=== PATIENT | male | born 1960 | race Caucasian/White ===

== ENCOUNTER 2018-06-21 21:20 | Emergency (ER) | payer SELFPAY ==
--- NOTE | 2018-06-21 21:56 | ERPHSYRPT ---
- History of Present Illness Time Seen by Provider: 06/21/18 21:40 Source: patient, family Exam Limitations: no limitations Physician History: 58 y/o white male smoker on no medications and has nkda, presents with 3 days worsening left upper ext and left lower ext weakness. pt has not had any diagnosis of htn or any other medical condition. pt denies visual changes, denies headache, denies soa, denies cp. he has never had this type of sx in past. Severity: severe Associated Symptoms: weakness, No nausea, No vomiting, No abdominal pain, No shortness of breath, No chest pain, No headaches, No syncope, No seizure - Review of Systems Constitutional: Weakness (left side) Eyes: No Symptoms Ears, Nose, & Throat: No Symptoms Respiratory: No Symptoms Cardiac: No Symptoms Abdominal/Gastrointestinal: No Symptoms Genitourinary Symptoms: No Symptoms Musculoskeletal: No Symptoms Skin: No Symptoms Neurological: Focal Weakness (left upper and lower ext), No Dizziness, No Gait Changes, No Headache, No Speech Changes Psychological: No Symptoms Endocrine: No Symptoms Hematologic/Lymphatic: No Symptoms Immunological/Allergic: No Symptoms All Other Systems: Reviewed and Negative - Past Medical History Pertinent Past Medical History: No Neurological History: No Pertinent History ENT History: No Pertinent History Cardiac History: No Pertinent History Respiratory History: No Pertinent History Endocrine Medical History: No Pertinent History Musculoskeletal History: No Pertinent History GI Medical History: No Pertinent History History: No Pertinent History Psycho-Social History: No Pertinent History Male Reproductive Disorders: No Pertinent History - Past Surgical History Neuro Surgical History: No Pertinent History Cardiac: No Pertinent History Respiratory: No Pertinent History Gastrointestinal: No Pertinent History Genitourinary: No Pertinent History Musculoskeletal: No Pertinent History Male Surgical History: No Pertinent History - Nursing Vital Signs Nursing Vital Signs: Initial Vital Signs Temperature 99.0 F 06/21/18 21:47 Pulse Rate 57 L 06/21/18 21:47 Respiratory Rate 18 06/21/18 21:47 Blood Pressure 164/104 06/21/18 21:47 O2 Sat by Pulse Oximetry 98 06/21/18 21:47 Pain Scale Pain Intensity 2 - Physical Exam General Appearance: no apparent distress, alert, anxiety, obese Eye Exam: PERRL/EOMI, eyes nml inspection Ears, Nose, Throat Exam: normal ENT inspection, moist mucous membranes Neck Exam: normal inspection, non-tender, supple, full range of motion Respiratory Exam: normal breath sounds, lungs clear, airway intact, No chest tenderness, No respiratory distress Cardiovascular Exam: regular rate/rhythm, normal heart sounds, normal peripheral pulses Gastrointestinal/Abdomen Exam: soft, normal bowel sounds, No tenderness, No guarding Rectal Exam: not done Back Exam: normal inspection, normal range of motion, No CVA tenderness, No vertebral tenderness Extremity Exam: normal inspection, No pedal edema, No tenderness Neurologic Exam: alert, oriented x 3, cooperative, normal mood/affect, sensory deficit (left upper and lower ext), motor weakness (left upper and lower ext), abnormal gait, No disoriented, No confusion, No facial droop, No slurred speech , No aphasia, No dysarthria Skin Exam: normal color, warm, dry Lymphatic Exam: No adenopathy SpO2 Interpretation: normal - Course Nursing assessment & vital signs reviewed: Yes EKG Interpreted by Me: RATE (53), Sinus Rhythm, NORMAL AXIS, NORMAL INTERVALS, NORMAL QRS, Other (no comparison ekg.) Ordered Tests: Active Orders 24 hr Category Date Time Status Librarian Specialist STAT Care 06/21/18 21:59 Active EKG-ER Only STAT Care 06/21/18 21:59 Active IV Insertion STAT Care 06/21/18 21:59 Active NPO (ED) STAT Care 06/21/18 21:43 Active Pulse Oximetry (ED) STAT Care 06/21/18 21:59 Active HEAD WITHOUT CONTRAST [CT] Stat Exams 06/21/18 21:43 Taken CBC W DIFF Stat Lab 06/21/18 22:57 Completed CMP Stat Lab 06/21/18 22:57 Completed D-DIMER QUANTITATION Stat Lab 06/21/18 22:57 Completed Lab/Rad Data: Laboratory Result Diagrams 06/21/18 22:57 06/21/18 22:57 Laboratory Results 06/21/18 06/21/18 06/21/18 Range/Units 22:57 22:57 22:57 WBC 8.7 (4.0-10.5) K/mm3 RBC 5.64 H (4.1-5.6) M/mm3 Hgb 16.4 (12.5-18.0) gm/dl Hct 50.8 H (42-50) % MCV 90.1 (78-100) fl MCH 29.0 (26-32) pg MCHC 32.3 (32-36) g/dl RDW 13.5 (11.5-14.0) % Plt Count 248 (150-450) K/mm3 MPV 11.2 H (6-9.5) fl Gran % 62.4 (36.0-66.0) % Eos # (Auto) 0.52 H (0-0.5) Absolute Lymphs (auto) 2.04 (1.0-4.6) Absolute Monos (auto) 0.67 (0.0-1.3) Lymphocytes % 23.4 L (24.0-44.0) % Monocytes % 7.7 (0.0-12.0) % Eosinophils % 6.0 H (0.00-5.0) % Basophils % 0.5 (0.0-0.4) % Absolute Granulocytes 5.45 (1.4-6.9) Basophils # 0.04 (0-0.4) D-Dimer 446 (215-500) ng/mL Sodium 143 (137-145) mmol/L Potassium 4.0 (3.5-5.1) mmol/L Chloride 106 (98-107) mmol/L Carbon Dioxide 26 (22-30) mmol/L Anion Gap 14.6 (5-15) MEQ/L BUN 16 (9-20) mg/dL Creatinine 0.71 (0.66-1.25) mg/dL Estimated GFR > 60.0 ML/MIN Glucose 86 (74-106) mg/dL Calcium 9.4 (8.4-10.2) mg/dL Total Bilirubin 0.40 (0.2-1.3) mg/dL AST 22 (17-59) U/L ALT 20 (0-50) U/L Alkaline Phosphatase 89 (38-126) U/L Serum Total Protein 7.4 (6.3-8.2) g/dL Albumin 4.1 (3.5-5.0) g/dL - Progress Progress: improved, re-examined Progress Note: 06/22/18 00:37 ct head-no acute intracranial abnormality pt now moving his left upper and left lower ext to a greater extent but not normally. he still cannot walk. he refuses admission and transfer. he states he does not have health insurance and does not want mounting bills. i advised him of risks of leaving [facility] and benefits of admission and transfer. pt understands and desires to leave [facility]. Counseled pt/family regarding: lab results, diagnosis, need for follow-up, rad results - Departure Departure Disposition: AMA Clinical Impression: Left-sided weakness Condition: Stable Critical Care Time: No Referrals: DOCTOR,NO FAMILY [Primary Care Provider] - Additional Instructions: return to ED immediately if symptoms worsen. follow up with neurologist for further management.
[2018-06-21 22:58] LABS: BASOPHIL % 0.5 % (0.0-0.4); Basophil (Absolute #) 0.04 (0-0.4); Eosinophil (Absolute #) 0.52 (0-0.5); Granulocyte Absolute (ANC) 5.45 (1.4-6.9); Granulocytes % 62.4 % (36.0-66.0); Hematocrit 50.8 % (42-50); Hemoglobin 16.4 gm/dl (12.5-18.0); Lymphocyte (Absolute #) 2.04 (1.0-4.6); Lymphocytes % 23.4 % (24.0-44.0); Mean Cell Volume 90.1 fl (78-100); Mean Corpuscular Hgb Concent. 32.3 g/dl (32-36); Mean Platelet Volume 11.2 fl (6-9.5); Monocyte (Absolute #) 0.67 (0.0-1.3); Monocytes % 7.7 % (0.0-12.0); Platelet Count 248 K/mm3 (150-450); Red Blood Count 5.64 M/mm3 (4.1-5.6); Red Cell Distribution Width 13.5 % (11.5-14.0); White Blood Count 8.7 K/mm3 (4.0-10.5)
[2018-06-21 23:13] LABS: ALBUMIN 4.1 g/dL (3.5-5.0); ALKALINE PHOSPHATASE 89 U/L (38-126); ANION GAP 14.6 MEQ/L (5-15); BLOOD UREA NITROGEN 16 mg/dL (9-20); CHLORIDE 106 mmol/L (98-107); Calcium 9.4 mg/dL (8.4-10.2); Carbon Dioxide 26 mmol/L (22-30); Creatinine 1 0.71 mg/dL (0.66-1.25); Glucose 86 mg/dL (74-106); SGOT/AST 22 U/L (17-59); SGPT/ALT 20 U/L (0-50); SODIUM 143 mmol/L (137-145); Total Protein 7.4 g/dL (6.3-8.2)
[2018-06-22 00:56] VITALS: BP 138/94; PULSE 56; O2SAT 98
--- NOTE | 2018-06-22 07:52 | XRAY ---
Indication: Left-sided weakness/numbness. Multiple contiguous axial images obtained through the head without contrast. Comparison: None Normal appearing brain parenchyma, ventricles, and bony calvarium. Visualized paranasal sinuses and mastoid air cells are clear. Impression: Normal CT head without contrast exam. Comment: Preliminary interpretation was made by [facility]. No discrepancy. CTDI 71.01
== END 2018-06-22 01:20 | disposition left against medical advice (07) ==
LOC: ED 21:20
DX: R53.1 Weakness (principal)
CPT/HCPCS: 36000; 36415; 70450; 80053; 85025; 85379; 93005; 93041; 99284

== ENCOUNTER 2024-12-15 14:44 | Observation (INO) | payer MEDICARE ==
[2024-12-15 15:18] LABS: BASOPHIL % 1.3 % (0.2-1.2); Basophil (Absolute #) 0.09 x10^3/uL (0.01-0.08); Eosinophil (Absolute #) 0.42 x10^3/uL (0.04-0.54); Hematocrit 50.7 % (40.1-51.0); Hemoglobin 15.9 g/dL (13.7-17.5); IMMATURE GRAN # 0.02 x10^3u/L (0.001-0.031); IMMATURE GRAN % 0.3 % (0.001-0.429); Lymphocyte (Absolute #) 1.92 x10^3/uL (1.32-3.57); Mean Corpuscular Hemoglobin 28.9 pg (25.7-32.2); Mean Corpuscular Hgb Concent. 31.4 g/dL (32.3-36.5); Monocyte (Absolute #) 0.59 x10^3/uL (0.30-0.82); NUCLEATED RBC # 0.00 x10^3u/L (0.00-0.012); NUCLEATED RBC % 0.0 % (0.00-0.2); Platelet Count 244 x10^3/uL (163-337); Red Blood Count 5.51 x10^6/uL (4.63-6.08); White Blood Count 7.0 x10^3/uL (4.23-9.07)
--- NOTE | 2024-12-15 15:27 | XRAY ---
Indication: Weakness. Multiple contiguous axial images obtained through the head without contrast. Comparison: August 21, 2018 Interval global atrophy and moderate periventricular degenerative microischemia within normal limits. New remote lacunar infarcts right basal ganglia/internal capsule. No acute intracranial hemorrhage, abnormal extra-axial fluid collection, or mass effect. 4th ventricle is midline without hydrocephalus. Bony calvarium intact. Mild mucosal thickening both ethmoid and lesser degree left frontal sinuses . Mastoid air cells are clear. Impression: Nonacute senile brain. Remote lacunar infarcts right basal ganglia/internal capsule. Incidental paranasal sinus disease.
[2024-12-15 15:43] LABS: Calcium 8.9 mg/dL (8.4-10.2); Carbon Dioxide 30.0 mmol/L (22-30); Creatinine 1 0.96 mg/dL (0.66-1.25); EST GLOMERULAR FILTRATION RATE 87.7 ML/MIN; Glucose 100.0 mg/dL (74-106); NT PRO BNPII 870.0 pg/mL (<300); Potassium 4.3 mmol/L (3.5-5.1); SGOT/AST 20.0 U/L (17-59); SGPT/ALT 13.0 U/L (0-50); Total Protein 7.1 g/dL (6.3-8.2)
[2024-12-15] MEDS ORDERED: NORVASC 5 MG ONE (16:07)
[2024-12-15] MEDS: NORVASC 5 MG PO ONE (16:13)
[2024-12-15] MEDS: CHLORTHALIDONE PO SCH (16:15)
--- NOTE | 2024-12-15 16:39 | ERPHSYRPT ---
- History of Present Illness Time Seen by Provider: 12/15/24 16:38 Source: patient Exam Limitations: no limitations Patient Subjective Stated Complaint: C/O hypertension Triage Nursing Assessment: patient brought to ED by ambulance from [facility] with c/o hypertension. patient had a systolic of 244 and diastolic of 104 per EMS. patient has a BP of 189/145 after patient received labetol by EMS. patient rates shoulder pain 5/10 at this time. states he has been weak for a long period time and continues to get weaker each day. skin w/n/d, afebrile, patient denies chest pain or shortness of breath at this time. Physician History: 64-year-old male history of type 2 diabetes COPD hypertension stroke 2018 residual right-sided weakness, peripheral neuropathy and aneurysm presents to our ED via EMS as a referral from his primary care doctor's (Dr. Parmar) office for evaluation of strokelike symptoms. Patient states that he has been off of his blood pressure medication for over a year. He did not provide a specific reason as to why. She admits to experiencing generalized weakness. No focal or lateralizing symptomology otherwise. Patient received 5 mg of labetalol by EMS. Blood pressure had reportedly improved from 244 systolic to 189 systolic. Denied pain. No chest pain. Patient afebrile. No shortness of breath. Patient voiced no other complaints or concerns. Portions of this note were created with voice recognition technology. There may be grammatical, spelling, punctuation or sound alike errors Timing/Duration: today Severity: moderate Modifying Factors: Improves With: nothing Associated Symptoms: denies symptoms Allergies/Adverse Reactions: No Known Drug Allergies Allergy (Verified 12/15/24 15:02) Home Medications: Aspirin 81 mg PO DAILY 12/15/24 [History] Hx Tetanus, Diphtheria Vaccination/Date Given: No (unknown) Hx Influenza Vaccination/Date Given: Yes Hx Pneumococcal Vaccination/Date Given: Yes Travel Risk - International Travel Have you traveled outside of the country in past 3 weeks: No - Emerging Infectious Disease Are you exhibiting symptoms associated with any current EIDs: No - Review of Systems All Other Systems: Reviewed and Negative - Past Medical History Pertinent Past Medical History: No Neurological History: Peripheral Neuropathy, Stroke ENT History: No Pertinent History Cardiac History: Aneurysm, Hypertension Respiratory History: Asthma, COPD Endocrine Medical History: Diabetes Type II Musculoskeletal History: Osteoarthritis GI Medical History: No Pertinent History History: No Pertinent History Psycho-Social History: No Pertinent History Male Reproductive Disorders: No Pertinent History Other Medical History: He has loss of sensation in the L LE, he notes numbness in the top of the L foot. DROP FOOT ON THE LEFT He notes MRI of LB and neck region, he states they were negative. - Past Surgical History Past Surgical History: Yes Neuro Surgical History: No Pertinent History Cardiac: No Pertinent History Respiratory: No Pertinent History Gastrointestinal: No Pertinent History Genitourinary: No Pertinent History Musculoskeletal: No Pertinent History Male Surgical History: No Pertinent History Other Surgical History: lumbar fusion, left shoulder repair - Social History Smoking Status: Former smoker How long have you smoked: yrs Exposure to second hand smoke: No Drug Use: none - Social Determinants of Health Will the patient participate in the screening: Declined to provide - Nursing Vital Signs Nursing Vital Signs: Initial Vital Signs Pulse Rate 63 12/15/24 14:47 Respiratory Rate 20 12/15/24 14:47 Blood Pressure 189/145 12/15/24 14:47 O2 Sat by Pulse Oximetry 98 12/15/24 14:47 Pain Scale Pain Intensity 0 - Physical Exam General Appearance: no apparent distress, alert Eye Exam: PERRL/EOMI, eyes nml inspection Ears, Nose, Throat Exam: normal ENT inspection, moist mucous membranes Neck Exam: normal inspection, full range of motion Respiratory Exam: normal breath sounds, lungs clear, No respiratory distress Cardiovascular Exam: regular rate/rhythm, normal heart sounds, normal peripheral pulses Gastrointestinal/Abdomen Exam: soft, normal bowel sounds, No tenderness, No mass Back Exam: normal inspection, normal range of motion, No CVA tenderness, No vertebral tenderness Extremity Exam: normal inspection, normal range of motion, pelvis stable Neurologic Exam: alert, oriented x 3, cooperative, normal mood/affect, sensation nml, other (Residual left-sided hemiparesis. Stroke in 2018. Patient with right-sided symptoms.), No motor deficits Skin Exam: normal color, warm, dry, No rash Lymphatic Exam: No adenopathy SpO2 Interpretation: normal SpO2: 97 O2 Delivery: Room Air - Course Nursing assessment & vital signs reviewed: Yes EKG Interpreted by Me: RATE (61), Sinus Rhythm, NORMAL AXIS, NORMAL INTERVALS, NORMAL QRS - CT Exams Soft Tissue Neck CT Interpretation: Tele-radiologist Report (ET neck no comps punctate calcification left carotid bulb and left ICA. Normal CTA neck otherwise.) Head CT Interpretation: Tele-radiologist Report (No comps. Very minimal calcification both parasellar ICAs otherwise normal CTA head) Ordered Tests: Active Orders 24 hr Category Date Time Status Construction Trades Teacher STAT Care 12/15/24 14:54 Active EKG-ER Only STAT Care 12/15/24 14:52 Active IV Insertion STAT Care 12/15/24 14:52 Active Pulse Oximetry (ED) STAT Care 12/15/24 14:[address] ANGIOGRAPHY NECK [CT] Stat Exams 12/15/24 16:37 Taken CTA HEAD W AND/OR WO CONTRAST [CT] Stat Exams 12/15/24 16:37 Taken HEAD WITHOUT CONTRAST [CT] Stat Exams 12/15/24 14:58 Completed CBC W DIFF Stat Lab 12/15/24 15:15 Completed CMP Stat Lab 12/15/24 15:15 Completed NT PRO BNPII Stat Lab 12/15/24 15:15 Completed TROPONIN Q4H Lab 12/15/24 15:15 Completed TROPONIN Q4H Lab 12/15/24 19:00 Completed TROPONIN Q4H Lab 12/15/24 23:00 Ordered UA W/RFX UR CULTURE Stat Lab 12/15/24 17:47 Completed Medication Summary Generic Name Dose Route Start Last Admin Trade Name Freq PRN Reason Stop Dose Admin Chlorthalidone 25 mg 12/15/24 16:15 12/15/24 17:00 Chlorthalidone 25 Mg Tablet PO 01/14/25 16:14 Not Given DAILY DAMON Discontinued Medications Generic Name Dose Route Start Last Admin Trade Name Freq PRN Reason Stop Dose Admin Amlodipine Besylate 5 mg 12/15/24 16:01 12/15/24 16:13 Amlodipine Besylate 5 Mg Tablet PO 12/15/24 16:02 5 mg STAT ONE Administration Amlodipine Besylate Confirm 12/15/24 16:07 Amlodipine Besylate 5 Mg Tablet Administered 12/15/24 16:08 Dose 5 mg .ROUTE .[facility] ONE Lab/Rad Data: Laboratory Result Diagrams 12/15/24 15:15 12/15/24 15:15 Laboratory Results 12/15/24 12/15/24 12/15/24 Range/Units 19:00 17:47 15:15 WBC (4.23-9.07) x10^3/uL RBC (4.63-6.08) x10^6/uL Hgb (13.7-17.5) g/dL Hct (40.1-51.0) % MCV (79.0-92.2) fL MCH (25.7-32.2) pg MCHC (32.3-36.5) g/dL RDW (11.6-14.4) % Plt Count (163-337) x10^3/uL MPV (9.4-12.4) fL Gran % (34.0-67.9) % Immature Gran % (Auto) (0.001-0.429) % Nucleat RBC Rel Count (0.00-0.2) % Eos # (Auto) (0.04-0.54) x10^3/uL Immature Gran # (Auto) (0.001-0.031) x10^3u/L Absolute Lymphs (auto) (1.32-3.57) x10^3/uL Absolute Monos (auto) (0.30-0.82) x10^3/uL Absolute Nucleated RBC (0.00-0.012) x10^3u/L Lymphocytes % (21.8-53.1) % Monocytes % (5.3-12.2) % Eosinophils % (0.8-7.0) % Basophils % (0.2-1.2) % Absolute Granulocytes (1.78-5.38) x10^3/uL Basophils # (0.01-0.08) x10^3/uL Sodium (135-145) mmol/L Potassium (3.5-5.1) mmol/L Chloride (98-107) mmol/L Carbon Dioxide (22-30) mmol/L Anion Gap (5-15) MEQ/L BUN (9-20) mg/dL Creatinine (0.66-1.25) mg/dL Estimated GFR ML/MIN Glucose (74-106) mg/dL Calcium (8.4-10.2) mg/dL Total Bilirubin (0.2-1.3) mg/dL AST (17-59) U/L ALT (0-50) U/L Alkaline Phosphatase (38-126) U/L Troponin I < 0.012 < 0.012 (0.000-0.033) ng/mL NT-Pro-B Natriuret Pep (<300) pg/mL Serum Total Protein (6.3-8.2) g/dL Albumin (3.5-5.0) g/dL Urine Color Yellow (Yellow) Urine Appearance Clear (Clear) Urine pH 5.0 (4.6-8.0) Ur Specific [place] >=1.030 A (1.005-1.030) Urine Protein Trace A (Negative) Urine Glucose (UA) Negative (Negative) mg/dL Urine Ketones Trace A (Negative) Urine Blood Negative (Negative) Urine Nitrite Negative (Negative) Urine Bilirubin Negative (Negative) Urine Urobilinogen 1.0 A (0.2) mg/dL Ur Leukocyte Esterase Negative (Negative) U Hyaline Cast (Auto) NONE SEEN (0-2) /LPF Urine Microscopic RBC 0-2 (0-5) /HPF Urine Microscopic WBC 0-2 (0-5) /HPF Ur Epithelial Cells None Seen (None Seen) /HPF Urine Bacteria None Seen (None Seen) /HPF Urine Culture Reflexed NO (NO) 12/15/24 12/15/24 Range/Units 15:15 15:15 WBC 7.0 (4.23-9.07) x10^3/uL RBC 5.51 (4.63-6.08) x10^6/uL Hgb 15.9 (13.7-17.5) g/dL Hct 50.7 (40.1-51.0) % MCV 92.0 (79.0-92.2) fL MCH 28.9 (25.7-32.2) pg MCHC 31.4 L (32.3-36.5) g/dL RDW 12.9 (11.6-14.4) % Plt Count 244 (163-337) x10^3/uL MPV 10.6 (9.4-12.4) fL Gran % 56.6 (34.0-67.9) % Immature Gran % (Auto) 0.3 (0.001-0.429) % Nucleat RBC Rel Count 0.0 (0.00-0.2) % Eos # (Auto) 0.42 (0.04-0.54) x10^3/uL Immature Gran # (Auto) 0.02 (0.001-0.031) x10^3u/L Absolute Lymphs (auto) 1.92 (1.32-3.57) x10^3/uL Absolute Monos (auto) 0.59 (0.30-0.82) x10^3/uL Absolute Nucleated RBC 0.00 (0.00-0.012) x10^3u/L Lymphocytes % 27.4 (21.8-53.1) % Monocytes % 8.4 (5.3-12.2) % Eosinophils % 6.0 (0.8-7.0) % Basophils % 1.3 H (0.2-1.2) % Absolute Granulocytes 3.98 (1.78-5.38) x10^3/uL Basophils # 0.09 H (0.01-0.08) x10^3/uL Sodium 142 (135-145) mmol/L Potassium 4.3 (3.5-5.1) mmol/L Chloride 105 (98-107) mmol/L Carbon Dioxide 30 (22-30) mmol/L Anion Gap 11.8 (5-15) MEQ/L BUN 13 (9-20) mg/dL Creatinine 0.96 (0.66-1.25) mg/dL Estimated GFR 87.7 ML/MIN Glucose 100 (74-106) mg/dL Calcium 8.9 (8.4-10.2) mg/dL Total Bilirubin 0.30 (0.2-1.3) mg/dL AST 20 (17-59) U/L ALT 13 (0-50) U/L Alkaline Phosphatase 105 (38-126) U/L Troponin I (0.000-0.033) ng/mL NT-Pro-B Natriuret Pep 870 (<300) pg/mL Serum Total Protein 7.1 (6.3-8.2) g/dL Albumin 4.1 (3.5-5.0) g/dL Urine Color (Yellow) Urine Appearance (Clear) Urine pH (4.6-8.0) Ur Specific [place] (1.005-1.030) Urine Protein (Negative) Urine Glucose (UA) (Negative) mg/dL Urine Ketones (Negative) Urine Blood (Negative) Urine Nitrite (Negative) Urine Bilirubin (Negative) Urine Urobilinogen (0.2) mg/dL Ur Leukocyte Esterase (Negative) U Hyaline Cast (Auto) (0-2) /LPF Urine Microscopic RBC (0-5) /HPF Urine Microscopic WBC (0-5) /HPF Ur Epithelial Cells (None Seen) /HPF Urine Bacteria (None Seen) /HPF Urine Culture Reflexed (NO) - Progress Progress: improved Progress Note: Case discussed with Dr. Saha neurologist at 4:35 PM. She advised CTA head and neck as well as a 300 mg loading dose of Plavix. Patient to be admitted for an MRI cardiac echo. Please see note for additional details. Neurologist Dr. Saha advised slow decrease in blood pressure. Patient was given oral hypertensives as ordered by his primary care doctor prior to arrival. Blood pressure down to 197 systolic. MAP decreased by 20% 12/15/24 16:38 64-year-old male history of type 2 diabetes COPD hypertension stroke 2018 residual right-sided weakness, peripheral neuropathy and aneurysm presents to our ED via EMS as a referral from his primary care doctor's (Dr. Parmar) office for evaluation of strokelike symptoms. Patient states that he has been off of his blood pressure medication for over a year. Physical exam revealed residual left sided hemiparesis. Patient ambulates with a cane. Otherwise no focal or lateralizing symptomology. CTA head and neck showed no significant stenotic lesions. Patient will be admitted for further evaluation including MRI and echo. Plan of care discussed with patient. He agrees to admission to [facility] for further evaluation and treatment. I considered decreasing blood pressure with nicardipine however felt this would have been too rapid in light of his year long history of untreated and uncontrolled hypertension. This was discussed with neurologist. We agreed on oral antihypertensives slow gradual decrease in blood pressure EKG sinus rhythm no heart strain observed History obtained from patient's primary care provider patient and EMS. Differential diagnosis stroke, hypertensive urgency, Portions of this note were created with voice recognition technology. There may be grammatical, spelling, punctuation or sound alike errors Complexity of problems addressed is moderate acute complicated. No critical care time. Complexity of data reviewed and analyzed is extensive. Test ordered test reviewed results analyzed and correlated clinically with history and physical exam. Management discussed with hospitalist who accepts admission to observation. Management also discussed with neurologist as stated above. Risk of complication at risk of morbidity/mortality of patient management is high. Patient requires hospitalization for further evaluation and treatment. Vital stable. Time spent to admit patient is approximately 20 minutes. Plan of care established for shared decision making. No social determinants of health present to impede follow-up. Portions of this note were created with voice recognition technology. There may be grammatical, spelling, punctuation or sound alike errors 12/15/24 19:40 Hospitalist 's admission at 8:10 PM 12/15/24 19:50 Counseled pt/family regarding: lab results, diagnosis, need for follow-up - Departure Departure Disposition: Observation Clinical Impression: Hypertensive emergency Condition: Stable Critical Care Time: No Referrals: HILARIO CHAPA PA [Primary Care Provider, UNKNOWN] - Follow up/PCP as directed
[2024-12-15 19:10] LABS: Glucose, Urine Negative (Negative); Protein,Urine Dip Trace (Negative); RBC 0-2 /HPF (0-5); WBC 0-2 /HPF (0-5)
[2024-12-15] MEDS ORDERED: PLAVIX Tablet ONE (20:20)
[2024-12-15] MEDS: PLAVIX Tablet PO ONE (20:22)
[2024-12-16 05:29] LABS: Hematocrit 49.5 % (40.1-51.0); Hemoglobin 15.8 g/dL (13.7-17.5); Mean Corpuscular Hemoglobin 28.6 pg (25.7-32.2); Mean Corpuscular Hgb Concent. 31.9 g/dL (32.3-36.5); Platelet Count 223 x10^3/uL (163-337); Red Blood Count 5.52 x10^6/uL (4.63-6.08); White Blood Count 8.3 x10^3/uL (4.23-9.07)
[2024-12-16 06:06] LABS: Calcium 8.9 mg/dL (8.4-10.2); Carbon Dioxide 27.0 mmol/L (22-30); Creatinine 1 0.77 mg/dL (0.66-1.25); EST GLOMERULAR FILTRATION RATE 99.4 ML/MIN; Glucose 94.0 mg/dL (74-106); Potassium 3.8 mmol/L (3.5-5.1)
--- NOTE | 2024-12-16 06:23 | PCM.HP ---
History of Present Illness - Chief Complaint Chief Complaint: Hypertensive emergency History of Present Illness: Hypertensive Urgency (acute, high risk) - Patient reports non-adherence to antihypertensive therapy for over one year. Required 4-5 medications for control previously but stopped them approximately one year ago due to running out. - Initiated on amlodipine 5 mg and chlorthalidone 25 mg in the Emergency Department. - Will add lisinopril 20 mg. - Recommended to only uptitrate medications after 1-2 weeks. - Consider an outpatient echocardiogram. Right-Sided Paresthesia/Motor Weakness (high risk, unclear chronicity) - CTA angiogram showed no significant vascular disease. - A brain MRI has been recommended by the neurology domestic travel consultant. - Assistance from neurologist is appreciated, will follow recommendations from the neurology service. Cerebrovascular Disease (chronic) - History of stroke in 2018 with residual right-sided weakness. - Anti-platelet and lipid-lowering therapy. - Target LDL goal is <55 mg/dL given age and risk factors. Diabetes Mellitus (chronic) - No acute management changes at this time. - Continue home metformin. Unclear prior history of aneurysm (chronic, high risk) - Recommend outpatient abdominal aortic aneurysm and CT chest to investigate - Serial monitoring can allow for timely intervention if required, to prevent significant morbidity/mortality Subjective This is a 64-year-old gentleman who presented initially to his primary care physician's office today with a complaint of right-sided paresthesia, described as a "pins and needles" sensation affecting the entire right side of his body, but most prominently in the right upper extremity. At the primary care physician's office, he was found to have a markedly elevated blood pressure of over 200/100 mmHg and was subsequently referred to [facility] for evaluation of hypertensive urgency/emergency. In the Emergency Department, he reported non- adherence to his antihypertensive medications for over a year. He also endorsed experiencing fatigue and weakness for several months. His past medical history is significant for diabetes mellitus, hypertension, cerebrovascular disease with a stroke in 2018 resulting in right-sided weakness, peripheral neuropathy, and COPD. Home cardiac medications Reports not taking any antihypertensive medications for over one year. Physical examination Vital Signs Blood pressure: 180/145 mmHg Heart rate: 63 beats per minute Respiratory rate: 18 breaths per minute Oxygen saturation: 98% on room air Neurological Alert and oriented to person, place, and time. Not in acute distress. Normocephalic and atraumatic. Cardiovascular Non-tachycardic rate. Respiratory No tachypnea or respiratory distress. Abdominal No abdominal distension. Musculoskeletal No gross deformities noted. Lab and Studies Reviewed - CTA Angiogram of Head and Neck: Showed no significant carotid artery disease. Independently reviewed and interpreted by me. - EKG: Noted sinus rhythm. Independently reviewed and interpreted by me. - Complete Blood Count (12/15/2024): Hemoglobin 15.9 g/dL, Hematocrit 50%, WBC 7 k/uL, Platelets 244 k/uL. Independently reviewed and interpreted by me. - Basic Metabolic Panel (12/15/2024): Sodium 142 mmol/L, Potassium 4.3 mmol/L, Chloride 105 mmol/L, Bicarbonate 30 mmol/L, BUN 13 mg/dL, Creatinine 0.96 mg/dL. Independently reviewed and interpreted by me. Notes reviewed ER documentation from 12/15 was reviewed, which noted Neurologist's recommendations MDM Summary 1. Number and Complexity of Problems Addressed (CoPA): - High Complexity: This is due to one or more chronic illnesses with severe exacerbation (hypertensive urgency on a background of chronic hypertension) and an acute or chronic illness that poses a threat to bodily function (right-sided neurological symptoms requiring evaluation to rule out acute CVA). 2. Amount and/or Complexity of Data to be Reviewed and Analyzed (Data): - Extensive: This is based on the review and independent interpretation of multiple diagnostic tests, including an EKG and a CTA angiogram, as well as the review of multiple laboratory panels (CBC, BMP). Additionally, review of an external note from the neurology domestic travel consultant was performed. 3. Risk of Complications, Morbidity, and/or Mortality (Risk): - High Risk: This is based on the management of hypertensive urgency, which is an acute illness that poses a threat to life or bodily function. The decision was made to initiate multiple prescription medications (amlodipine, chlorthalidone, lisinopril) to manage this high-risk condition. The presenting neurological symptoms also represent a potential threat to bodily function, contributing to the high-risk classification. - Review of Systems Constitutional: Fatigue, No Fever, No Chills Eyes: No Symptoms Ears, Nose, & Throat: No Symptoms Respiratory: No Cough, No Orthopnea, No Short Of Breath Cardiac: No Chest Pain, No Edema Abdominal/Gastrointestinal: No Symptoms Genitourinary Symptoms: No Symptoms Skin: No Symptoms Neurological: Parasthesia, Sensory Changes, No Headache, No Paralysis Psychological: No Mood Changes Endocrine: No Symptoms Hematologic/Lymphatic: No Symptoms Immunological/Allergic: No Symptoms Medications & Allergies Home Medications: Home Medication List Aspirin 81 mg PO DAILY 12/15/24 [History Confirmed 12/15/24] Allergies/Adverse Reactions: Allergies Allergy/AdvReac Type Severity Reaction Status Date / Time No Known Drug Allergies Allergy Verified 12/15/24 15:02 - Past Medical History Past Medical History: No Neurological History: Peripheral Neuropathy, Stroke ENT History: No Pertinent History Cardiac History: Aneurysm, Hypertension Respiratory History: Asthma, COPD Endocrine Medical History: No Pertinent History Musculoskelatal History: Degenerative Disk Disease, Osteoarthritis GI Medical History: No Pertinent History History: No Pertinent History Pyscho-Social History: No Pertinent History Male Reproductive Disorders: Prostate Problems Comment: He has loss of sensation in the L LE, he notes numbness in the top of the L foot. DROP FOOT ON THE LEFT He notes MRI of LB and neck region, he states they were negative. - Past Surgical History Past Surgical History: Yes Neuro Surgical History: No Pertinent History Cardiac History: No Pertinent History Respiratory Surgery: No Pertinent History GI Surgical History: No Pertinent History Genitourinary Surgical Hx: No Pertinent History Musculskeletal Surgical Hx: Other Male Surgical History: No Pertinent History Other Surgical History: lumbar fusion, left shoulder repair - Social History Smoking Status: Former smoker How long have you smoked: yrs Exposure to second hand smoke: No Alcohol: None Drug Use: none - Social Determinants of Health Will the patient participate in the screening: Yes Do you worry about a steady place to live?: No Do you have any problems with any of the following?: No known problems In the past 12 months,have you had to go without utilities?: No Have you or anyone in your house had to go without enough: No Transportation Issues: No Has anyone in your support network made you feel unsafe?: No Does the patient want assistance with any of the above?: No - Physical Exam Vital Signs: Vital Signs - 24 hr Temp Pulse Resp BP BP BP Pulse Ox 12/16/24 04:20 99.5 F 64 20 199/100 97 12/15/24 23:05 85 146/70 12/15/24 21:44 61 12/15/24 21:37 98.3 F 62 20 229/111 97 12/15/24 20:30 68 19 215/129 97 12/15/24 20:16 97 12/15/24 20:01 53 L 18 204/102 96 12/15/24 20:00 188/100 12/15/24 19:57 56 L 20 203/116 97 12/15/24 19:48 57 L 19 213/102 97 12/15/24 19:30 60 18 197/96 97 12/15/24 19:00 53 L 17 187/102 97 12/15/24 18:30 56 L 19 175/92 99 12/15/24 18:00 59 L 19 178/100 96 12/15/24 17:46 54 L 17 185/80 208/102 95 12/15/24 17:45 66 15 98 12/15/24 17:43 57 L 19 98 12/15/24 17:15 62 15 207/122 207/122 98 12/15/24 16:34 65 18 184/104 96 12/15/24 16:31 61 20 230/118 95 12/15/24 16:01 60 19 198/102 97 12/15/24 15:34 58 L 14 223/116 96 12/15/24 15:11 63 19 226/131 97 12/15/24 15:10 71 22 97 12/15/24 15:00 63 14 193/109 98 12/15/24 14:59 97 12/15/24 14:49 96.9 F 60 21 189/145 98 12/15/24 14:47 61 21 189/145 99 Results - Labs Lab/Micro Results: Lab Results-Last 24 Hours 12/15/24 12/15/24 12/15/24 Range/Units 15:15 15:15 15:15 WBC 7.0 (4.23-9.07) x10^3/uL RBC 5.51 (4.63-6.08) x10^6/uL Hgb 15.9 (13.7-17.5) g/dL Hct 50.7 (40.1-51.0) % MCV 92.0 (79.0-92.2) fL MCH 28.9 (25.7-32.2) pg MCHC 31.4 L (32.3-36.5) g/dL RDW 12.9 (11.6-14.4) % Plt Count 244 (163-337) x10^3/uL MPV 10.6 (9.4-12.4) fL Gran % 56.6 (34.0-67.9) % Immature Gran % (Auto) 0.3 (0.001-0.429) % Nucleat RBC Rel Count 0.0 (0.00-0.2) % Eos # (Auto) 0.42 (0.04-0.54) x10^3/uL Immature Gran # (Auto) 0.02 (0.001-0.031) x10^3u/L Absolute Lymphs (auto) 1.92 (1.32-3.57) x10^3/uL Absolute Monos (auto) 0.59 (0.30-0.82) x10^3/uL Absolute Nucleated RBC 0.00 (0.00-0.012) x10^3u/L Lymphocytes % 27.4 (21.8-53.1) % Monocytes % 8.4 (5.3-12.2) % Eosinophils % 6.0 (0.8-7.0) % Basophils % 1.3 H (0.2-1.2) % Absolute Granulocytes 3.98 (1.78-5.38) x10^3/uL Basophils # 0.09 H (0.01-0.08) x10^3/uL Sodium 142 (135-145) mmol/L Potassium 4.3 (3.5-5.1) mmol/L Chloride 105 (98-107) mmol/L Carbon Dioxide 30 (22-30) mmol/L Anion Gap 11.8 (5-15) MEQ/L BUN 13 (9-20) mg/dL Creatinine 0.96 (0.66-1.25) mg/dL Estimated GFR 87.7 ML/MIN Glucose 100 (74-106) mg/dL Calcium 8.9 (8.4-10.2) mg/dL Total Bilirubin 0.30 (0.2-1.3) mg/dL AST 20 (17-59) U/L ALT 13 (0-50) U/L Alkaline Phosphatase 105 (38-126) U/L Troponin I < 0.012 (0.000-0.033) ng/mL NT-Pro-B Natriuret Pep 870 (<300) pg/mL Serum Total Protein 7.1 (6.3-8.2) g/dL Albumin 4.1 (3.5-5.0) g/dL Urine Color (Yellow) Urine Appearance (Clear) Urine pH (4.6-8.0) Ur Specific Clemons (1.005-1.030) Urine Protein (Negative) Urine Glucose (UA) (Negative) mg/dL Urine Ketones (Negative) Urine Blood (Negative) Urine Nitrite (Negative) Urine Bilirubin (Negative) Urine Urobilinogen (0.2) mg/dL Ur Leukocyte Esterase (Negative) U Hyaline Cast (Auto) (0-2) /LPF Urine Microscopic RBC (0-5) /HPF Urine Microscopic WBC (0-5) /HPF Ur Epithelial Cells (None Seen) /HPF Urine Bacteria (None Seen) /HPF Urine Culture Reflexed (NO) 12/15/24 12/15/24 12/15/24 Range/Units 17:47 19:00 23:10 WBC (4.23-9.07) x10^3/uL RBC (4.63-6.08) x10^6/uL Hgb (13.7-17.5) g/dL Hct (40.1-51.0) % MCV (79.0-92.2) fL MCH (25.7-32.2) pg MCHC (32.3-36.5) g/dL RDW (11.6-14.4) % Plt Count (163-337) x10^3/uL MPV (9.4-12.4) fL Gran % (34.0-67.9) % Immature Gran % (Auto) (0.001-0.429) % Nucleat RBC Rel Count (0.00-0.2) % Eos # (Auto) (0.04-0.54) x10^3/uL Immature Gran # (Auto) (0.001-0.031) x10^3u/L Absolute Lymphs (auto) (1.32-3.57) x10^3/uL Absolute Monos (auto) (0.30-0.82) x10^3/uL Absolute Nucleated RBC (0.00-0.012) x10^3u/L Lymphocytes % (21.8-53.1) % Monocytes % (5.3-12.2) % Eosinophils % (0.8-7.0) % Basophils % (0.2-1.2) % Absolute Granulocytes (1.78-5.38) x10^3/uL Basophils # (0.01-0.08) x10^3/uL Sodium (135-145) mmol/L Potassium (3.5-5.1) mmol/L Chloride (98-107) mmol/L Carbon Dioxide (22-30) mmol/L Anion Gap (5-15) MEQ/L BUN (9-20) mg/dL Creatinine (0.66-1.25) mg/dL Estimated GFR ML/MIN Glucose (74-106) mg/dL Calcium (8.4-10.2) mg/dL Total Bilirubin (0.2-1.3) mg/dL AST (17-59) U/L ALT (0-50) U/L Alkaline Phosphatase (38-126) U/L Troponin I < 0.012 < 0.012 (0.000-0.033) ng/mL NT-Pro-B Natriuret Pep (<300) pg/mL Serum Total Protein (6.3-8.2) g/dL Albumin (3.5-5.0) g/dL Urine Color Yellow (Yellow) Urine Appearance Clear (Clear) Urine pH 5.0 (4.6-8.0) Ur Specific Clemons >=1.030 A (1.005-1.030) Urine Protein Trace A (Negative) Urine Glucose (UA) Negative (Negative) mg/dL Urine Ketones Trace A (Negative) Urine Blood Negative (Negative) Urine Nitrite Negative (Negative) Urine Bilirubin Negative (Negative) Urine Urobilinogen 1.0 A (0.2) mg/dL Ur Leukocyte Esterase Negative (Negative) U Hyaline Cast (Auto) NONE SEEN (0-2) /LPF Urine Microscopic RBC 0-2 (0-5) /HPF Urine Microscopic WBC 0-2 (0-5) /HPF Ur Epithelial Cells None Seen (None Seen) /HPF Urine Bacteria None Seen (None Seen) /HPF Urine Culture Reflexed NO (NO) 12/16/24 12/16/24 Range/Units 05:10 05:10 WBC 8.3 (4.23-9.07) x10^3/uL RBC 5.52 (4.63-6.08) x10^6/uL Hgb 15.8 (13.7-17.5) g/dL Hct 49.5 (40.1-51.0) % MCV 89.7 (79.0-92.2) fL MCH 28.6 (25.7-32.2) pg MCHC 31.9 L (32.3-36.5) g/dL RDW 13.1 (11.6-14.4) % Plt Count 223 (163-337) x10^3/uL MPV 11.2 (9.4-12.4) fL Gran % (34.0-67.9) % Immature Gran % (Auto) (0.001-0.429) % Nucleat RBC Rel Count (0.00-0.2) % Eos # (Auto) (0.04-0.54) x10^3/uL Immature Gran # (Auto) (0.001-0.031) x10^3u/L Absolute Lymphs (auto) (1.32-3.57) x10^3/uL Absolute Monos (auto) (0.30-0.82) x10^3/uL Absolute Nucleated RBC (0.00-0.012) x10^3u/L Lymphocytes % (21.8-53.1) % Monocytes % (5.3-12.2) % Eosinophils % (0.8-7.0) % Basophils % (0.2-1.2) % Absolute Granulocytes (1.78-5.38) x10^3/uL Basophils # (0.01-0.08) x10^3/uL Sodium 138 (135-145) mmol/L Potassium 3.8 (3.5-5.1) mmol/L Chloride 104 (98-107) mmol/L Carbon Dioxide 27 (22-30) mmol/L Anion Gap 10.9 (5-15) MEQ/L BUN 8 L (9-20) mg/dL Creatinine 0.77 (0.66-1.25) mg/dL Estimated GFR 99.4 ML/MIN Glucose 94 (74-106) mg/dL Calcium 8.9 (8.4-10.2) mg/dL Total Bilirubin (0.2-1.3) mg/dL AST (17-59) U/L ALT (0-50) U/L Alkaline Phosphatase (38-126) U/L Troponin I (0.000-0.033) ng/mL NT-Pro-B Natriuret Pep (<300) pg/mL Serum Total Protein (6.3-8.2) g/dL Albumin (3.5-5.0) g/dL Urine Color (Yellow) Urine Appearance (Clear) Urine pH (4.6-8.0) Ur Specific Clemons (1.005-1.030) Urine Protein (Negative) Urine Glucose (UA) (Negative) mg/dL Urine Ketones (Negative) Urine Blood (Negative) Urine Nitrite (Negative) Urine Bilirubin (Negative) Urine Urobilinogen (0.2) mg/dL Ur Leukocyte Esterase (Negative) U Hyaline Cast (Auto) (0-2) /LPF Urine Microscopic RBC (0-5) /HPF Urine Microscopic WBC (0-5) /HPF Ur Epithelial Cells (None Seen) /HPF Urine Bacteria (None Seen) /HPF Urine Culture Reflexed (NO) - Radiology Impressions Radiology Exams & Impressions: Radiology Procedures Category Date Time Status CT ANGIOGRAPHY NECK [CT] Stat Exams 12/15/24 16:37 Taken CTA HEAD W AND/OR WO CONTRAST [CT] Stat Exams 12/15/24 16:37 Taken HEAD WITHOUT CONTRAST [CT] Stat Exams 12/15/24 14:58 Completed Telemedicine Encounter - Telemedicine Encounter Telemedicine Encounter: "The entirety of this encounter was performed via Telemedicine" This visit was performed using real-time audio and video connection between my location and thepatients locationwith the assistance of a surrogateat the patients location. Written or verbal consent was obtained from the patient/guardian to perform this visit using[place]telemedicine technology. Any patient questions regarding the telemedicine interaction were answered.
[2024-12-16] MEDS: Zestril 20 MG PO SCH (07:39)
[2024-12-16] MEDS: NORVASC 5 MG PO SCH (07:40)
[2024-12-16] MEDS: CHLORTHALIDONE PO SCH (07:40)
[2024-12-16 07:50] VITALS: BP 185/110; PULSE 68; RESP 16; TEMP 98.9; O2SAT 96
--- NOTE | 2024-12-16 08:51 | XRAY ---
Indication: Weakness. Nonacute senile brain on same day CT head exam. Conventional contrast enhanced CTA neck performed using 80 cc Isovue 370 contrast. 2D sagittal and coronal reformatted images obtained. Additional 3D reformatted images obtained using separate workstation. Comparison: None Visualized aortic arch is normal in course and caliber with anatomic variant for bovine arch. Examination right carotid circulation demonstrates normal CTA appearance to the common carotid, carotid bulb, internal carotid, and external carotid arteries. Examination left carotid circulation demonstrates punctate arteriosclerotic calcification carotid bulb and proximal internal carotid artery. Otherwise normal CTA appearance to remaining common carotid and external carotid arteries. Vertebral arteries are bilaterally patent with the left slightly larger in caliber. Visualized soft tissues demonstrates scattered cm/subcm cervical and submandibular nodes bilaterally, none pathologically enlarged. Parotid and submandibular glands are bilaterally symmetric. Thyroid gland unremarkable. Supra and infraglottic airway widely patent. Visualized osseous structures demonstrates osteopenia and minimal/mild multilevel degenerative spondylosis. Poor dentition. Lung apices are clear. Impression: 1. Minimal punctate calcification left carotid bulb and left internal carotid artery. Remaining CTA neck with contrast exam is normal. 2. Incidental chronic bony findings.
--- NOTE | 2024-12-16 08:53 | XRAY ---
Indication: Weakness. Nonacute senile brain on same day CT head exam. Conventional contrast enhanced CTA head performed using 80 cc Isovue 370 contrast. 2D sagittal and coronal reformatted images obtained. Additional 3D reformatted images obtained using separate workstation. Comparison: None Distal internal carotid arteries demonstrates minimal scattered arteriosclerotic calcifications in both parasellar segments without critical stenosis, obstruction, or AV malformation. Normal carotid terminus bilaterally. More distal anterior cerebral and middle cerebral arteries are normal in CTA appearance. Posterior circulation demonstrates normal CTA appearance to distal left/right vertebral, basilar, left/right posterior cerebral, left/right superior cerebellar, and left/right anterior inferior cerebellar arteries. Venous sinuses/drainage unremarkable. Brain parenchyma is negative for abnormal intra or extra-axial enhancement. Impression: Minimal arteriosclerotic disease in both parasellar internal carotid arteries. Remaining CTA head with contrast exam is normal.
[2024-12-16 09:41] LABS: Cholesterol 150.0 mg/dL (50-200); LDL, DIRECT 96.0 mg/dL (30-100); TRIGLYCERIDE 64.0 mg/dL (30-150)
[2024-12-16] MEDS ORDERED: BABY ASPIRIN 81 MG CHEW PO SCH (10:00)
[2024-12-16] MEDS ORDERED: ECOTRIN 81 MG PO SCH (10:00)
--- NOTE | 2024-12-16 12:11 | PCM.DS ---
Discharge Summary Date of Admission: 12/15/24 21:35 Date of Discharge: 12/16/24 Admitting Physician: SHELDON VAUGHN MD Primary Care Provider: [facility] Allergies Allergies No Known Drug Allergies Allergy (Verified 12/15/24 15:02) Hospital Summary - Hospital Course Hospital Course: This is a 64-year-old male with a medical history of diabetes mellitus, hypertension, cerebrovascular disease with a prior stroke in 2018 resulting in right-sided weakness, peripheral neuropathy, and COPD. He initially presented on 12/15/24 to his primary care physician's office with complaints of right-sided paresthesia, described as a "pins and needles" sensation involving the entire right side of his body, most notably the right upper extremity. At that time, he was found to have severely elevated blood pressure readings exceeding 200/100 mmHg and was referred to the emergency department at [facility] for evaluation of hypertensive urgency or possible emergency. In the ED, the patient disclosed that he had been non-adherent with his antihypertensive medications for over a year. He also reported chronic fatigue and generalized weakness for several months. On 12/16/24, he continued to endorse longstanding right-sided weakness affecting the arm, leg, and neck. He stated that these symptoms had been present for quite some time and were not new. The patient also reported that he had recently changed primary care providers, now receiving care in [place], and was restarted on blood pressure medications during that visit. Despite medical advice, his blood pressure remained elevated on admission, and he was given his antihypertensive medications early during hospitalization. A CT scan of the head revealed remote lacunar infarcts in the right basal ganglia, which the patient stated he was already aware of. He reported that he does not currently follow with a neurologist. An MRI was ordered for further evaluation, but the patient expressed that he did not wish to remain in the hospital to complete the imaging study, stating he needed to return home to feed his outdoor cats and take care of personal matters. After discussion, the patient declined further inpatient evaluation and chose to leave the hospital against medical advice (AMA). Nursing staff completed the AMA process with him. Advised pt of risk of leaving including . Pt stated he would just back later if needed. - Vitals & Intake/Output Vital Signs: Vital Signs Temperature 98.9 F 12/16/24 07:47 Pulse Rate 68 10/22/25 07:47 Respiratory Rate 16 12/16/24 07:47 Blood Pressure 185/110 12/16/24 07:47 O2 Sat by Pulse Oximetry 96 12/16/24 07:47 Intake & Output: Intake & Output 12/14/24 12/15/24 12/16/24 12/17/24 11:59 11:59 11:59 11:59 Intake Total 520 Balance 520 Weight 97.7 kg - Lab Result Diagrams: 12/16/24 05:10 12/16/24 05:10 Lab Results-Last 24 Hrs: Lab Results-Last 24 Hours 12/15/24 12/15/24 12/15/24 Range/Units 15:15 15:15 15:15 WBC 7.0 (4.23-9.07) x10^3/uL RBC 5.51 (4.63-6.08) x10^6/uL Hgb 15.9 (13.7-17.5) g/dL Hct 50.7 (40.1-51.0) % MCV 92.0 (79.0-92.2) fL MCH 28.9 (25.7-32.2) pg MCHC 31.4 L (32.3-36.5) g/dL RDW 12.9 (11.6-14.4) % Plt Count 244 (163-337) x10^3/uL MPV 10.6 (9.4-12.4) fL Gran % 56.6 (34.0-67.9) % Immature Gran % (Auto) 0.3 (0.001-0.429) % Nucleat RBC Rel Count 0.0 (0.00-0.2) % Eos # (Auto) 0.42 (0.04-0.54) x10^3/uL Immature Gran # (Auto) 0.02 (0.001-0.031) x10^3u/L Absolute Lymphs (auto) 1.92 (1.32-3.57) x10^3/uL Absolute Monos (auto) 0.59 (0.30-0.82) x10^3/uL Absolute Nucleated RBC 0.00 (0.00-0.012) x10^3u/L Lymphocytes % 27.4 (21.8-53.1) % Monocytes % 8.4 (5.3-12.2) % Eosinophils % 6.0 (0.8-7.0) % Basophils % 1.3 H (0.2-1.2) % Absolute Granulocytes 3.98 (1.78-5.38) x10^3/uL Basophils # 0.09 H (0.01-0.08) x10^3/uL Sodium 142 (135-145) mmol/L Potassium 4.3 (3.5-5.1) mmol/L Chloride 105 (98-107) mmol/L Carbon Dioxide 30 (22-30) mmol/L Anion Gap 11.8 (5-15) MEQ/L BUN 13 (9-20) mg/dL Creatinine 0.96 (0.66-1.25) mg/dL Estimated GFR 87.7 ML/MIN Glucose 100 (74-106) mg/dL Hemoglobin A1c (4.5-6.0) % Calcium 8.9 (8.4-10.2) mg/dL Total Bilirubin 0.30 (0.2-1.3) mg/dL AST 20 (17-59) U/L ALT 13 (0-50) U/L Alkaline Phosphatase 105 (38-126) U/L Troponin I < 0.012 (0.000-0.033) ng/mL NT-Pro-B Natriuret Pep 870 (<300) pg/mL Serum Total Protein 7.1 (6.3-8.2) g/dL Albumin 4.1 (3.5-5.0) g/dL Triglycerides (30-150) mg/dL Cholesterol (50-200) mg/dL LDL Cholesterol (30-100) mg/dL HDL Cholesterol (40-60) mg/dL Heart Disease Risk Ratio TSH 3rd Generation (0.470-4.680) mIU/L Urine Color (Yellow) Urine Appearance (Clear) Urine pH (4.6-8.0) Ur Specific Girard (1.005-1.030) Urine Protein (Negative) Urine Glucose (UA) (Negative) mg/dL Urine Ketones (Negative) Urine Blood (Negative) Urine Nitrite (Negative) Urine Bilirubin (Negative) Urine Urobilinogen (0.2) mg/dL Ur Leukocyte Esterase (Negative) U Hyaline Cast (Auto) (0-2) /LPF Urine Microscopic RBC (0-5) /HPF Urine Microscopic WBC (0-5) /HPF Ur Epithelial Cells (None Seen) /HPF Urine Bacteria (None Seen) /HPF Urine Culture Reflexed (NO) 12/15/24 12/15/24 12/15/24 Range/Units 17:47 19:00 23:10 WBC (4.23-9.07) x10^3/uL RBC (4.63-6.08) x10^6/uL Hgb (13.7-17.5) g/dL Hct (40.1-51.0) % MCV (79.0-92.2) fL MCH (25.7-32.2) pg MCHC (32.3-36.5) g/dL RDW (11.6-14.4) % Plt Count (163-337) x10^3/uL MPV (9.4-12.4) fL Gran % (34.0-67.9) % Immature Gran % (Auto) (0.001-0.429) % Nucleat RBC Rel Count (0.00-0.2) % Eos # (Auto) (0.04-0.54) x10^3/uL Immature Gran # (Auto) (0.001-0.031) x10^3u/L Absolute Lymphs (auto) (1.32-3.57) x10^3/uL Absolute Monos (auto) (0.30-0.82) x10^3/uL Absolute Nucleated RBC (0.00-0.012) x10^3u/L Lymphocytes % (21.8-53.1) % Monocytes % (5.3-12.2) % Eosinophils % (0.8-7.0) % Basophils % (0.2-1.2) % Absolute Granulocytes (1.78-5.38) x10^3/uL Basophils # (0.01-0.08) x10^3/uL Sodium (135-145) mmol/L Potassium (3.5-5.1) mmol/L Chloride (98-107) mmol/L Carbon Dioxide (22-30) mmol/L Anion Gap (5-15) MEQ/L BUN (9-20) mg/dL Creatinine (0.66-1.25) mg/dL Estimated GFR ML/MIN Glucose (74-106) mg/dL Hemoglobin A1c (4.5-6.0) % Calcium (8.4-10.2) mg/dL Total Bilirubin (0.2-1.3) mg/dL AST (17-59) U/L ALT (0-50) U/L Alkaline Phosphatase (38-126) U/L Troponin I < 0.012 < 0.012 (0.000-0.033) ng/mL NT-Pro-B Natriuret Pep (<300) pg/mL Serum Total Protein (6.3-8.2) g/dL Albumin (3.5-5.0) g/dL Triglycerides (30-150) mg/dL Cholesterol (50-200) mg/dL LDL Cholesterol (30-100) mg/dL HDL Cholesterol (40-60) mg/dL Heart Disease Risk Ratio TSH 3rd Generation (0.470-4.680) mIU/L Urine Color Yellow (Yellow) Urine Appearance Clear (Clear) Urine pH 5.0 (4.6-8.0) Ur Specific Girard >=1.030 A (1.005-1.030) Urine Protein Trace A (Negative) Urine Glucose (UA) Negative (Negative) mg/dL Urine Ketones Trace A (Negative) Urine Blood Negative (Negative) Urine Nitrite Negative (Negative) Urine Bilirubin Negative (Negative) Urine Urobilinogen 1.0 A (0.2) mg/dL Ur Leukocyte Esterase Negative (Negative) U Hyaline Cast (Auto) NONE SEEN (0-2) /LPF Urine Microscopic RBC 0-2 (0-5) /HPF Urine Microscopic WBC 0-2 (0-5) /HPF Ur Epithelial Cells None Seen (None Seen) /HPF Urine Bacteria None Seen (None Seen) /HPF Urine Culture Reflexed NO (NO) 12/16/24 12/16/24 12/16/24 Range/Units 05:00 05:10 05:10 WBC 8.3 (4.23-9.07) x10^3/uL RBC 5.52 (4.63-6.08) x10^6/uL Hgb 15.8 (13.7-17.5) g/dL Hct 49.5 (40.1-51.0) % MCV 89.7 (79.0-92.2) fL MCH 28.6 (25.7-32.2) pg MCHC 31.9 L (32.3-36.5) g/dL RDW 13.1 (11.6-14.4) % Plt Count 223 (163-337) x10^3/uL MPV 11.2 (9.4-12.4) fL Gran % (34.0-67.9) % Immature Gran % (Auto) (0.001-0.429) % Nucleat RBC Rel Count (0.00-0.2) % Eos # (Auto) (0.04-0.54) x10^3/uL Immature Gran # (Auto) (0.001-0.031) x10^3u/L Absolute Lymphs (auto) (1.32-3.57) x10^3/uL Absolute Monos (auto) (0.30-0.82) x10^3/uL Absolute Nucleated RBC (0.00-0.012) x10^3u/L Lymphocytes % (21.8-53.1) % Monocytes % (5.3-12.2) % Eosinophils % (0.8-7.0) % Basophils % (0.2-1.2) % Absolute Granulocytes (1.78-5.38) x10^3/uL Basophils # (0.01-0.08) x10^3/uL Sodium 138 (135-145) mmol/L Potassium 3.8 (3.5-5.1) mmol/L Chloride 104 (98-107) mmol/L Carbon Dioxide 27 (22-30) mmol/L Anion Gap 10.9 (5-15) MEQ/L BUN 8 L (9-20) mg/dL Creatinine 0.77 (0.66-1.25) mg/dL Estimated GFR 99.4 ML/MIN Glucose 94 (74-106) mg/dL Hemoglobin A1c (4.5-6.0) % Calcium 8.9 (8.4-10.2) mg/dL Total Bilirubin (0.2-1.3) mg/dL AST (17-59) U/L ALT (0-50) U/L Alkaline Phosphatase (38-126) U/L Troponin I (0.000-0.033) ng/mL NT-Pro-B Natriuret Pep (<300) pg/mL Serum Total Protein (6.3-8.2) g/dL Albumin (3.5-5.0) g/dL Triglycerides 64 (30-150) mg/dL Cholesterol 150 (50-200) mg/dL LDL Cholesterol 96 (30-100) mg/dL HDL Cholesterol 36 L (40-60) mg/dL Heart Disease Risk Ratio 4.0 TSH 3rd Generation 1.986 (0.470-4.680) mIU/L Urine Color (Yellow) Urine Appearance (Clear) Urine pH (4.6-8.0) Ur Specific Girard (1.005-1.030) Urine Protein (Negative) Urine Glucose (UA) (Negative) mg/dL Urine Ketones (Negative) Urine Blood (Negative) Urine Nitrite (Negative) Urine Bilirubin (Negative) Urine Urobilinogen (0.2) mg/dL Ur Leukocyte Esterase (Negative) U Hyaline Cast (Auto) (0-2) /LPF Urine Microscopic RBC (0-5) /HPF Urine Microscopic WBC (0-5) /HPF Ur Epithelial Cells (None Seen) /HPF Urine Bacteria (None Seen) /HPF Urine Culture Reflexed (NO) 12/16/24 Range/Units 05:10 WBC (4.23-9.07) x10^3/uL RBC (4.63-6.08) x10^6/uL Hgb (13.7-17.5) g/dL Hct (40.1-51.0) % MCV (79.0-92.2) fL MCH (25.7-32.2) pg MCHC (32.3-36.5) g/dL RDW (11.6-14.4) % Plt Count (163-337) x10^3/uL MPV (9.4-12.4) fL Gran % (34.0-67.9) % Immature Gran % (Auto) (0.001-0.429) % Nucleat RBC Rel Count (0.00-0.2) % Eos # (Auto) (0.04-0.54) x10^3/uL Immature Gran # (Auto) (0.001-0.031) x10^3u/L Absolute Lymphs (auto) (1.32-3.57) x10^3/uL Absolute Monos (auto) (0.30-0.82) x10^3/uL Absolute Nucleated RBC (0.00-0.012) x10^3u/L Lymphocytes % (21.8-53.1) % Monocytes % (5.3-12.2) % Eosinophils % (0.8-7.0) % Basophils % (0.2-1.2) % Absolute Granulocytes (1.78-5.38) x10^3/uL Basophils # (0.01-0.08) x10^3/uL Sodium (135-145) mmol/L Potassium (3.5-5.1) mmol/L Chloride (98-107) mmol/L Carbon Dioxide (22-30) mmol/L Anion Gap (5-15) MEQ/L BUN (9-20) mg/dL Creatinine (0.66-1.25) mg/dL Estimated GFR ML/MIN Glucose (74-106) mg/dL Hemoglobin A1c 5.17 (4.5-6.0) % Calcium (8.4-10.2) mg/dL Total Bilirubin (0.2-1.3) mg/dL AST (17-59) U/L ALT (0-50) U/L Alkaline Phosphatase (38-126) U/L Troponin I (0.000-0.033) ng/mL NT-Pro-B Natriuret Pep (<300) pg/mL Serum Total Protein (6.3-8.2) g/dL Albumin (3.5-5.0) g/dL Triglycerides (30-150) mg/dL Cholesterol (50-200) mg/dL LDL Cholesterol (30-100) mg/dL HDL Cholesterol (40-60) mg/dL Heart Disease Risk Ratio TSH 3rd Generation (0.470-4.680) mIU/L Urine Color (Yellow) Urine Appearance (Clear) Urine pH (4.6-8.0) Ur Specific Girard (1.005-1.030) Urine Protein (Negative) Urine Glucose (UA) (Negative) mg/dL Urine Ketones (Negative) Urine Blood (Negative) Urine Nitrite (Negative) Urine Bilirubin (Negative) Urine Urobilinogen (0.2) mg/dL Ur Leukocyte Esterase (Negative) U Hyaline Cast (Auto) (0-2) /LPF Urine Microscopic RBC (0-5) /HPF Urine Microscopic WBC (0-5) /HPF Ur Epithelial Cells (None Seen) /HPF Urine Bacteria (None Seen) /HPF Urine Culture Reflexed (NO) - Radiology Exams Ordered Rad Exams-Entire Visit: Radiology Procedures Category Date Time Status CT ANGIOGRAPHY NECK [CT] Stat Exams 12/15/24 16:37 Completed CTA HEAD W AND/OR WO CONTRAST [CT] Stat Exams 12/15/24 16:37 Completed HEAD WITHOUT CONTRAST [CT] Stat Exams 12/15/24 14:58 Completed - Procedures and Test Procedures and Tests throughout Hospitalization: Therapy Orders & Screens 12/16/24 07:30 OT Screen per Nursing Assess ONCE Comment: Protocol Order Physician Instructions: Greater than 3 points order OT Admission Screening Reason For Exam: Triggered on Admission Diagnosis: Hypertensive emergency Open Wound/Cellutlitis/Pressure Ulcers: No Acute Fx/ORIF/Change in wt bearing status: No Severe MUSCULOSKELETAL pain: No ADL Dysfunction: Yes Acute CVA w/Hemiparesis/Hemiplegia: No Decreased Functional Mobility/Strength: Yes Sprain/Strain: No Acute Post-op Mobility Dysfunction: No Total Points: 4 PT Screen per Nursing Assess ONCE Comment: Protocol Order Physician Instructions: Greater than 3 points order PT Admission Screenin Reason For Exam: Triggered on Admission Diagnosis: Hypertensive emergency Open Wound/Cellutlitis/Pressure Ulcers: No Acute Fx/ORIF/Change in wt bearing status: No Severe MUSCULOSKELETAL pain: No ADL Dysfunction: Yes Acute CVA w/Hemiparesis/Hemiplegia: No Decreased Functional Mobility/Strength: Yes Sprain/Strain: No Acute Post-op Mobility Dysfunction: No Total Points: 4 12/16/24 08:19 PT Eval & Treat ( Order) ONCE Reason for Eval:: TIA Diagnosis: Hypertensive emergency ST Eval & Treat ( Order) .as ordered Comment: Physician Instructions: Reason For Exam: Evaluate: Yes Treat: Yes Reason for Eval: TIA Diagnosis: Hypertensive emergency OT Eval and Treat ( Order) ONCE Comment: Physician Instructions: Reason For Exam: TIA Evaluate: Yes Treat: Yes Diagnosis: Hypertensive emergency Discharge Exam General Appearance: no apparent distress, alert Neurologic Exam: alert, oriented x 3, cooperative, normal mood/affect, nml cerebellar function, sensation nml, motor weakness (Right sided weakness right arm and leg Left foot drop, Left pronator drift.), 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, No motor deficits Eye Exam: PERRL, EOMI, eyes nml inspection Ears, Nose, Throat Exam: normal ENT inspection, pharynx normal, moist mucous membranes Neck Exam: normal inspection, non-tender, supple, full range of motion Respiratory Exam: normal breath sounds, lungs clear, No respiratory distress Cardiovascular Exam: regular rate/rhythm, normal heart sounds Gastrointestinal/Abdomen Exam: soft, No tenderness, No mass Male Genitalia Exam: deferred Rectal Exam: deferred Back Exam: normal inspection, normal range of motion, No CVA tenderness, No vertebral tenderness Extremity Exam: normal inspection, normal range of motion Skin Exam: normal color, warm, dry Final Diagnosis/Problem List - Final Discharge Diagnosis/Problem (1) Hypertensive emergency Current Visit: Yes Status: Acute Assessment & Plan: - 2:2 CVA? - Eval for CVA/TIA- pt left AMA prior to complete evaluation - Bp meds gave early this AM - BP continues to be elevated Code(s): I16.1 - HYPERTENSIVE EMERGENCY (2) Right sided weakness Current Visit: Yes Status: Acute Assessment & Plan: - CT head: Impression: Nonacute senile brain. Remote lacunar infarcts right basal ganglia/internal capsule. Incidental paranasal sinus disease. - CT angio: Impression: 1. Minimal punctate calcification left carotid bulb and left internal carotid artery. Remaining CTA neck with contrast exam is normal. 2. Incidental chronic bony findings. - CTA head: Impression: Minimal arteriosclerotic disease in both parasellar internal carotid arteries. Remaining CTA head with contrast exam is normal. - Pt refused MRI and Echo - Lipid panel reviewed, HDL 36, LDL 96- need high dose statin - TSH 1.986 - A1C 5.17 - PT/OT/ST Code(s): R53.1 - WEAKNESS (3) Obesity (BMI 30.0-34.9) Current Visit: Yes Status: Chronic Assessment & Plan: - Advised diet and exercise control Code(s): E66.811 - OBESITY, CLASS 1 (4) Type II diabetes mellitus Current Visit: Yes Status: Chronic Assessment & Plan: - A1C 5.17- controlled - Not currently taking meds for this - Pt no longer taking metformin and was taken off by PCP (5) History of stroke Current Visit: Yes Status: Chronic Assessment & Plan: - With left foot drop - As seen on CT head Code(s): Z86.73 - PRSNL HX OF TIA (TIA), AND CEREB INFRC W/O RESID DEFICITS (6) Left foot drop Current Visit: Yes Status: Chronic Assessment & Plan: - Chronic - Pt needs referral OP for PT and podiatry D/C plan of care time > 35 minutes Pt left AMA Code(s): M21.372 - FOOT DROP, LEFT FOOT - Discharge Discharge Date: 12/16/24 Disposition: Against Medical Advice Condition: Stable Prescriptions: Continue Aspirin 81 mg PO DAILY Follow up with: HILARIO CHAPA PA [Primary Care Provider, UNKNOWN]
[2024-12-16] MEDS ORDERED: LIPITOR 40MG PO SCH (22:00)
== END 2024-12-16 09:07 | disposition left against medical advice (07) ==
LOC: ED 14:44 → MED SURG 21:35
PROVIDERS: ADMIT Internal Medicine; ATTEND Internal Medicine
DX: I16.1 Hypertensive emergency (principal); R53.1 Weakness; E66.811 Obesity, class 1; E11.9 Type 2 diabetes mellitus without complications; I10 Essential (primary) hypertension; Z86.73 Personal history of transient ischemic attack (TIA), and cerebral infarction without residual deficits; M21.372 Foot drop, left foot; Z79.899 Other long term (current) drug therapy; Z23 Encounter for immunization
CPT/HCPCS: 36415; 70450; 70496; 70498; 80048; 80053; 80061; 81001; 83036; 83721; 83880; 84443; 84484; 85025; 85027; 93005; 93041; 93268; 94760; 99204; 99285; G0008; G0009; G0378; Q3014